=== PATIENT | female | born 1980 | race Caucasian/White ===

== ENCOUNTER → 2024-02-25 15:46 | Outpatient (REF) | payer OTHER, SELFPAY | LOC: PNTC 15:46 | PROVIDERS: ATTENDING PHYSICIAN Obstetrics & Gynecology | DX: O09.529 Supervision of elderly multigravida, unspecified trimester (principal) | CPT/HCPCS: 59025; 76815 ==

== ENCOUNTER 2024-02-28 04:40 | Inpatient (IN) | payer OTHER, SELFPAY ==
[2024-02-28 05:08] VITALS: BP 137/95; BMI 31.5
[2024-02-28] MEDS: LR 1000 IV (05:20)
[2024-02-28 05:39] LABS: Hematocrit 32.9 % (37.0-47.0); Hemoglobin 11.5 g/dL (12.0-16.0); Mean Corpuscular Hgb 29.9 pg (27.0-31.0); Mean Corpuscular Volume 85.5 fL (81.0-99.0); Mean Platelet Volume 11.1 fL (7.4-10.4); Platelet Count 127 10^3/uL (130-400); Red Blood Cell Count 3.85 10^6/uL (4.20-5.40); Red Cell Dist. Width 14.4 % (11.5-14.5); White Blood Cell Count 8.1 10^3/uL (4.8-10.8)
[2024-02-28] MEDS: TYLENOL 1000 MG PO (06:48)
[2024-02-28] MEDS: BICITRA 30 ML PO (06:48)
[2024-02-28] MEDS: ANCEF 10 IV (06:50)
[2024-02-28] MEDS: BENADRYL 25 MG IV (10:31)
[2024-02-28] MEDS: TORADOL 15 MG IV ×2 (14:23→19:30)
[2024-02-29] MEDS: TORADOL 15 MG IV ×2 (01:59→08:28)
[2024-02-29] MEDS: BENADRYL 25 MG PO (03:55)
[2024-02-29 04:15] LABS: Hematocrit 29.9 % (37.0-47.0); Hemoglobin 10.5 g/dL (12.0-16.0); Mean Corp Hgb Conc. 35.1 g/dL (33.0-37.0); Mean Corpuscular Hgb 30.3 pg (27.0-31.0); Mean Corpuscular Volume 86.2 fL (81.0-99.0); Mean Platelet Volume 11.1 fL (7.4-10.4); Platelet Count 125 10^3/uL (130-400); Red Blood Cell Count 3.47 10^6/uL (4.20-5.40); Red Cell Dist. Width 14.4 % (11.5-14.5); White Blood Cell Count 12.2 10^3/uL (4.8-10.8)
--- NOTE | 2024-02-29 08:13 | W.PN.ANS.POP ---
Anesthesia Post Operative
- Anesthesia Post Op Note
Vital Signs Stable-See Nursing Note: Yes
Airway Patent: Yes
Adequate Pain Control: Yes
Change in Mental Status: No
Current Postoperative Nausea & Vomiting: No
Anesthesia Complications: No
General Anesthetic Recall: No (N/A)
Unplanned Admission: No
Post Op Hydration Adequate: Yes
[2024-02-29] MEDS: FEOSOL 325 MG PO ×2 (08:27→20:26)
[2024-02-29] MEDS: MYLICON 80 MG PO ×3 (08:27→22:07)
[2024-02-29] MEDS: HYPERRHO S-D 1500 UNIT IM (12:15)
[2024-02-29] MEDS: TYLENOL 650 MG PO ×2 (14:23→22:00)
[2024-02-29] MEDS: MOTRIN 600 MG PO ×2 (14:29→22:00)
[2024-03-01] MEDS: TYLENOL 650 MG PO ×3 (03:59→18:13)
[2024-03-01] MEDS: MOTRIN 600 MG PO ×3 (04:00→18:14)
[2024-03-01] MEDS: FEOSOL 325 MG PO ×2 (08:07→19:55)
[2024-03-01] MEDS: SENOKOT-S 1 TABLET PO (08:07)
[2024-03-01 16:23] LABS: Syphilis/T. pallidum Ab Reflex Negative (Negative)
[2024-03-01] MEDS: MYLICON 80 MG PO (19:55)
[2024-03-02] MEDS: MOTRIN 600 MG PO ×4 (00:18→21:36)
[2024-03-02] MEDS: TYLENOL 650 MG PO ×4 (00:18→20:30)
[2024-03-02 10:36] LABS: Hematocrit 32.4 % (37.0-47.0); Hemoglobin 11.1 g/dL (12.0-16.0); Mean Corp Hgb Conc. 34.3 g/dL (33.0-37.0); Mean Corpuscular Hgb 30.6 pg (27.0-31.0); Mean Corpuscular Volume 89.3 fL (81.0-99.0); Mean Platelet Volume 10.4 fL (7.4-10.4); Platelet Count 149 10^3/uL (130-400); Red Blood Cell Count 3.63 10^6/uL (4.20-5.40); Red Cell Dist. Width 14.6 % (11.5-14.5); White Blood Cell Count 8.5 10^3/uL (4.8-10.8)
[2024-03-02] MEDS: PROCARDIA XL (EXTENDED RELEASE) 30 MG PO (10:41)
[2024-03-02] MEDS: SENOKOT-S 1 TABLET PO (10:41)
[2024-03-02] MEDS: FEOSOL 325 MG PO ×2 (10:41→20:30)
[2024-03-02 11:05] LABS: ALT (SGPT) 27 U/L (0-35); AST (SGOT) 52 U/L (14-36); Albumin 3.2 g/dl (3.5-5.0); Alkaline Phosphatase 130 U/L (38-126); Blood Urea Nitrogen 9 mg/dl (7-17); Calcium 9.5 mg/dl (8.4-10.2); Carbon Dioxide 23 mmol/L (22-30); Chloride 109 mmol/L (98-107); Estimated Creatinine Clearance > 125 ml/min; Glucose 103 mg/dl (70-99); Sodium 136 mmol/L (135-145); Total Bilirubin 0.3 mg/dl (0.2-1.3); Total Protein 5.7 g/dl (6.3-8.2); eGFR > 60.00
[2024-03-03] MEDS: MOTRIN 600 MG PO ×3 (04:31→17:35)
[2024-03-03] MEDS: TYLENOL 650 MG PO ×4 (04:31→19:49)
[2024-03-03 04:56] LABS: Hematocrit 33.9 % (37.0-47.0); Hemoglobin 11.3 g/dL (12.0-16.0); Mean Corp Hgb Conc. 33.3 g/dL (33.0-37.0); Mean Corpuscular Hgb 30.4 pg (27.0-31.0); Mean Corpuscular Volume 91.1 fL (81.0-99.0); Mean Platelet Volume 10.6 fL (7.4-10.4); Platelet Count 145 10^3/uL (130-400); Red Blood Cell Count 3.72 10^6/uL (4.20-5.40); Red Cell Dist. Width 14.4 % (11.5-14.5); White Blood Cell Count 7.7 10^3/uL (4.8-10.8)
[2024-03-03 05:09] LABS: ALT (SGPT) 42 U/L (0-35); AST (SGOT) 66 U/L (14-36); Albumin 3.4 g/dl (3.5-5.0); Alkaline Phosphatase 132 U/L (38-126); Blood Urea Nitrogen 10 mg/dl (7-17); Calcium 9.3 mg/dl (8.4-10.2); Carbon Dioxide 25 mmol/L (22-30); Chloride 106 mmol/L (98-107); Estimated Creatinine Clearance > 125 ml/min; Glucose 103 mg/dl (70-99); Sodium 136 mmol/L (135-145); Total Bilirubin 0.4 mg/dl (0.2-1.3); Total Protein 5.9 g/dl (6.3-8.2); eGFR > 60.00
[2024-03-03] MEDS: PROCARDIA XL (EXTENDED RELEASE) 30 MG PO (07:16)
[2024-03-03] MEDS: FEOSOL 325 MG PO ×2 (07:16→19:50)
[2024-03-03] MEDS: SENOKOT-S 1 TABLET PO (07:16)
[2024-03-03] MEDS: LR 1000 IV ×2 (09:22→22:44)
[2024-03-03] MEDS: MAGNESIUM SULFATE 100 IV (09:25)
[2024-03-03] MEDS: MAGNESIUM SULFATE 40 GRAM 1000 IV (09:51)
[2024-03-04] MEDS: MAGNESIUM SULFATE 40 GRAM 1000 IV (03:52)
[2024-03-04] MEDS: MOTRIN 600 MG PO ×2 (03:58→10:23)
[2024-03-04] MEDS: FEOSOL 325 MG PO ×2 (08:02→20:08)
[2024-03-04] MEDS: PROCARDIA XL (EXTENDED RELEASE) 30 MG PO (08:02)
[2024-03-04] MEDS: SENOKOT-S 1 TABLET PO (08:04)
[2024-03-04] MEDS: TYLENOL 650 MG PO (13:19)
[2024-03-04] MEDS: LR IV (14:34)
[2024-03-04] MEDS: MYLICON 80 MG PO (19:38)
[2024-03-05 06:16] LABS: % Basophils 0.3 % (0-2); % Eosinophils 3.1 % (0-6); % Immature Granulocytes 0.4 % (0-0.5); % Lymphocytes 21.9 % (20.5-51.1); % Monocytes 9.2 % (1.7-9.3); % Neutrophils 65.1 % (42.2-75.2); Absolute Eosinophils 0.2 10^3/uL (0-0.7); Absolute Lymphocytes 1.6 10^3/uL (1.2-3.4); Absolute Monocytes 0.7 10^3/uL (0.1-0.6); Absolute Neutrophils 4.8 10^3/uL (1.4-6.5); Hematocrit 36.5 % (37.0-47.0); Hemoglobin 12.1 g/dL (12.0-16.0); Mean Corp Hgb Conc. 33.2 g/dL (33.0-37.0); Mean Corpuscular Hgb 29.6 pg (27.0-31.0); Mean Corpuscular Volume 89.2 fL (81.0-99.0); Mean Platelet Volume 9.6 fL (7.4-10.4); Nucleated Red Blood Cells % 0 %; Platelet Count 153 10^3/uL (130-400); Red Blood Cell Count 4.09 10^6/uL (4.20-5.40); Red Cell Dist. Width 13.8 % (11.5-14.5); White Blood Cell Count 7.3 10^3/uL (4.8-10.8)
[2024-03-05 06:33] LABS: ALT (SGPT) 40 U/L (0-35); AST (SGOT) 39 U/L (14-36); Albumin 3.5 g/dl (3.5-5.0); Alkaline Phosphatase 126 U/L (38-126); Blood Urea Nitrogen 12 mg/dl (7-17); Calcium 9.4 mg/dl (8.4-10.2); Carbon Dioxide 25 mmol/L (22-30); Chloride 105 mmol/L (98-107); Estimated Creatinine Clearance > 125 ml/min; Glucose 93 mg/dl (70-99); Potassium 4.3 mmol/L (3.5-5.1); Sodium 136 mmol/L (135-145); Total Bilirubin 0.6 mg/dl (0.2-1.3); Total Protein 5.9 g/dl (6.3-8.2); eGFR > 60.00
--- NOTE | 2024-03-05 09:31 | W.DS.TRANS ---
DC Summary - Hoop Puncher
-
Discharge Instructions:
Discharge Diagnosis/Procedures rcs, preecl with sf
Instructions:
Stand-Alone Forms: LDRP Delivery
Changes to Home Medications: No
Discharge Medications:
DC Medications w/original date entered in [facility]
tvfwfurv-peu-[id number]-FA 1 mg tablet 1 tab PO DAILY 02/28/24
ibuprofen 600 mg tablet 600 mg PO Q6HPRN PRN cramps #90 tabs 03/04/24
acetaminophen 325 mg tablet 650 mg (2 x 325 mg) PO Q4HPRN PRN mild pain #0 tabs 03/05/24
ferrous sulfate 325 mg (65 mg iron) tablet (FeroSul) 325 mg PO BID #0 tabs 03/05/24
labetalol 200 mg tablet 200 mg PO BID #60 tabs 03/05/24
Home Medication Changes
Pending Results: Yes
Additional Pending Results:
placental pathology
Total time spent discharging patient (in min): 30
[2024-03-05] MEDS: TRANDATE 200 MG PO (09:48)
[2024-03-05] MEDS: FEOSOL 325 MG PO (09:48)
== END 2024-03-05 13:48 | disposition home or self-care (01) | DRG 788 ==
LOC: LDRP 04:40
PROVIDERS: Obstetrics & Gynecology; ADMITTING PHYSICIAN Obstetrics & Gynecology
PROC: 10D00Z1 Extraction of Products of Conception, Low, Open Approach (ICD-10-PCS; 2024-02-28)
DX: O34.211 Maternal care for low transverse scar from previous cesarean delivery (principal); N85.8 Other specified noninflammatory disorders of uterus; O14.14 Severe pre-eclampsia complicating childbirth; O99.214 Obesity complicating childbirth; Z3A.38 38 weeks gestation of pregnancy; Z37.0 Single live birth
CPT/HCPCS: 88307; 80053; 85025; 85027; 85461; 86780; 86850; 86900; 86901; J2790